=== PATIENT | male | born 1970 | race Hispanic/Latino ===

== ENCOUNTER 2017-07-12 23:36 | Emergency (ER) | payer OTHER ==
[2017-07-12 23:41] VITALS: PULSE 72; RESP 16; TEMP 98.2; O2SAT 100
--- NOTE | 2017-07-13 01:06 | ED PDOC ---
Lower Extremity Pain/Injury Time Seen by Provider: 07/13/17 00:19 Chief Complaint (Nursing): Lower Extremity Problem/Injury Chief Complaint (Provider): right leg pain History Per: Patient History/Exam Limitations: no limitations Onset/Duration Of Symptoms: Hrs Current Symptoms Are (Timing): Still Present Additional History Per: Patient Additional Complaint(s): 47 y/o male brought in by EMS for right upper leg pain from injury sustained prior to arrival. [place] his right leg slipped out in front of him and he heard a "pop" in the back. Patient notes pain worse with movement. DEnies numbness/weakness right lower extremity, obvious deformity. Past Medical History Reviewed: Historical Data, Nursing Documentation, Vital Signs Vital Signs: Last Vital Signs Temp 98.2 F 07/12/17 23:40 Pulse 72 07/12/17 23:40 Resp 16 07/12/17 23:40 BP Pulse Ox 100 07/12/17 23:40 - Medical History PMH: No Chronic Diseases - Surgical History Surgical History: No Surg Hx - Family History Family History: States: No Known Family Hx - Living Arrangements Living Arrangements: With Family - Home Medications Home Medications: Ambulatory Orders Medication Instructions Recorded Cyclobenzaprine [Cyclobenzaprine 10 mg PO BID PRN #14 tab 07/13/17 HCl] Naproxen [Naprosyn] 500 mg PO Q12 PRN #20 tablet 07/13/17 traMADol [Ultram] 50 mg PO Q8 PRN #10 tab 07/13/17 - Allergies Allergies/Adverse Reactions: Allergies Allergy/AdvReac Type Severity Reaction Status Date / Time No Known Allergies Allergy Verified 07/12/17 23:40 Review of Systems ROS Statement: Except As Marked, All Systems Reviewed And Found Negative Musculoskeletal: Positive for: Leg Pain (right) Physical Exam - Reviewed Nursing Documentation Reviewed: Yes Vital Signs Reviewed: Yes - Physical Exam Appears: Positive for: Well, Non-toxic, Uncomfortable Pulses-Dorsalis Pedis (L): 2+ Pulses-Dorsalis Pedis (R): 2+ Pulses-Post. Tibialis (L): 2+ Pulses-Post. Tibialis (R): 2+ Extremity: Positive for: Tenderness (tender to palpate mid aspect posterior right leg; no ecchymosis, edema, deformity noted. Distal NV, motor intact). Negative for: Normal ROM (limited ROM flexion right lower extemity due to pain) , Calf Tenderness, Deformity, Swelling Neurologic/Psych: Positive for: Alert, Oriented. Negative for: Motor/Sensory Deficits - ECG O2 Sat by Pulse Oximetry: 100 - Progress ED Course And Treament: Toradol IM, percocet PO, flexeril PO On re-eval, patient notes slight improvement of pain. JERMAINE wrap applied, knee immobilizer applied, crutches given with demonstration on use. Patient educated on findings, discharged with rx Tramadol (with education on narcotic abuse/dependence/overdose), Naproxen, Flexeril. Advised ice. Follow up ortho. Return precautions given. Disposition - Clinical Impression Clinical Impression: Hamstring muscle strain - Patient ED Disposition Is Patient to be Admitted: No Counseled Patient/Family Regarding: Diagnosis, Need For Followup, Rx Given - Disposition Referrals: Yg Fuller III, MD [Staff Provider] - Disposition: Routine/Home Disposition Time: 02:51 Condition: IMPROVED Prescriptions: Cyclobenzaprine [Cyclobenzaprine HCl] 10 mg PO BID PRN #14 tab PRN Reason: Muscle Spasm Naproxen [Naprosyn] 500 mg PO Q12 PRN #20 tablet PRN Reason: Pain, Moderate (4-7) traMADol [Ultram] 50 mg PO Q8 PRN #10 tab PRN Reason: Pain, Severe (8-10) Instructions: Hamstring Injury (ED) Forms: [employer] ([place])
[2017-07-13] MEDS: Oxycodone/Acetaminophen 5/325 mg Tab PO ONE (01:23)
== END 2017-07-13 02:56 | disposition home or self-care (01) ==
LOC: EDBD 23:36 → H.ER 23:36
DX: S76.311A Strain of muscle, fascia and tendon of the posterior muscle group at thigh level, right thigh, initial encounter (principal); X50.9XXA Other and unspecified overexertion or strenuous movements or postures, initial encounter; Y92.89 Other specified places as the place of occurrence of the external cause
CPT/HCPCS: 29530; 96372; 99285; J1885